=== PATIENT | male | born 1970 | race African-American/Black ===

== ENCOUNTER 2017-07-25 12:06 | Inpatient (IN) | payer OTHER ==
[2017-07-25 13:48] VITALS: BMI 19.1
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
[2017-07-25] MEDS ORDERED: MAGNESIUM CITRATE 300 ML BOTTLE PO PRN (17:01)
[2017-07-25] MEDS ORDERED: P-EPHED 60MG/TRIPROLIDI 2.5MG TABLET PO PRN (17:01)
[2017-07-25] MEDS ORDERED: MAGNESIUM HYDROX 2400MG/30ML ORAL SUSPENSION 30 ML CUP PO PRN (17:01)
[2017-07-25] MEDS ORDERED: hydrOXYzine PAMOATE 50 MG CAPSULE (FP) PO PRN (17:01)
[2017-07-25] MEDS ORDERED: IBUPROFEN 400 MG TABLET (FP) PO PRN (17:01)
[2017-07-25] MEDS ORDERED: LOPERAMIDE HCL 2 MG CAPSULE PO PRN (17:01)
[2017-07-25] MEDS ORDERED: NICOTINE POLACRILEX 2 MG GUM BC PRN (17:01)
[2017-07-25] MEDS ORDERED: guaiFENesin/D-METHORPHAN HB 10 ML UNIT-DOSE CUPS PO PRN (17:01)
[2017-07-25] MEDS ORDERED: MAG HYDROX/AL HYDROX/SIMETH 30 ML UNIT-DOSE CUP PO PRN (17:01)
[2017-07-25] MEDS ORDERED: MENTHOL/PHENOL 1 EACH UD MM PRN (17:01)
[2017-07-25] MEDS ORDERED: chlordiazePOXIDE HCL 25 MG CAPSULE PO PRN (17:01)
[2017-07-25] MEDS ORDERED: ACETAMINOPHEN 325 MG TABLET (FP) PO PRN (17:01)
[2017-07-25] MEDS: LOSARTAN POTASSIUM 50 MG TABLET (FP) PO SCH (20:50)
[2017-07-25] MEDS: chlordiazePOXIDE HCL 25 MG CAPSULE PO SCH (22:54)
[2017-07-25] MEDS: THIAMINE HCL 100 MG TABLET (FP) PO SCH (22:54)
[2017-07-26 00:51] LABS: URINE APPEARANCE CLEAR; URINE BILIRUBIN NEGATIVE (NEGATIVE); URINE BLOOD NEGATIVE (NEGATIVE); URINE COLOR YELLOW; URINE GLUCOSE (UA) NEGATIVE (NEGATIVE); URINE KETONE NEGATIVE (NEGATIVE); URINE NITRITE NEGATIVE (NEGATIVE); URINE PROTEIN NEGATIVE (NEGATIVE)
[2017-07-26] MEDS: chlordiazePOXIDE HCL 25 MG CAPSULE PO SCH ×4 (05:00→22:10)
[2017-07-26 10:00] LABS: MCH 31.3 pg (25.7-33.7); MCHC 33.6 g/dl (32.0-35.9); MEAN CELL VOLUME 93.2 fl (80-96); MEAN PLT VOLUME 11.8 fl (7.5-11.1); PLATELET COUNT 107 K/MM3 (134-434); RDW 13.8 % (11.9-15.9); WHITE BLOOD COUNT 4.5 K/mm3 (4.0-10.0)
[2017-07-26 10:04] LABS: URINE LEUK ESTERASE Negative (NEGATIVE)
[2017-07-26 10:05] LABS: ALK PHOS 122 U/L (45-117); ANION GAP 5 (8-16); CALCIUM 7.7 mg/dL (8.5-10.1); CO2 31 mmol/L (21-32); CREATININE 0.8 mg/dL (0.7-1.3); GLUCOSE,RANDOM 87 mg/dL (74-106); SGOT/AST 33 U/L (15-37); SGPT/ALT 26 U/L (12-78); TOT PROT 5.5 g/dl (6.4-8.2)
--- NOTE | 2017-07-26 10:12 | EKG ---
Test Reason : Blood Pressure : / mmHG Vent. Rate : 060 BPM Atrial Rate : 060 BPM P-R Int : 156 ms QRS Dur : 088 ms QT Int : 456 ms P-R-T Axes : 034 020 038 degrees QTc Int : 456 ms NORMAL SINUS RHYTHM T WAVE ABNORMALITY, CONSIDER ANTERIOR ISCHEMIA ABNORMAL ECG WHEN COMPARED WITH ECG OF 15-MAY-2016 14:57, NO SIGNIFICANT CHANGE WAS FOUND Confirmed by FERNANDA COCHRAN MD ([id number]) on 07/26/2017 10:12:01 AM Referred By: Confirmed By:FERNANDA COCHRAN MD
[2017-07-26] MEDS: LOSARTAN POTASSIUM 50 MG TABLET (FP) PO SCH ×2 (10:14→22:10)
[2017-07-26] MEDS: PRENATAL VITAMINS W/ FOLIC ACID TABLET (FP) PO SCH (10:14)
[2017-07-26] MEDS: NICOTINE 14 MG/24 HOURS TOPICAL PATCH TD SCH (10:15)
--- NOTE | 2017-07-26 12:24 | PN ---
[facility] CIWA - CIWA Score Nausea/Vomitin-No Nausea/No Vomiting Muscle Tremors: 3 Anxiety: 4-Mod. Anxious/Guarded Agitation: 1-Slight > Activity Paroxysmal Sweats: 3 Orientation: 0-Oriented Tacttile Disturbances: 2-Mild Itch/Numbness/Burn Auditory Disturbances: 0-None Visual Disturbances: 2-Mild Sensitivity Headache: 3-Moderate CIWA-Ar Total Score: 18 S Progress Note (SOAP) Subjective: Sweating, Body aches, Interrupted sleep, H/A, Tremors. Objective: PT. A & O X 3, OBSERVED AMBULATING ON UNIT. NO ACUTE DISTRESS. PATIENT DENIES CHEST PAIN. 07/26/17 12:25 Vital Signs Temperature 98.6 F 07/26/17 10:00 Pulse Rate 84 07/26/17 10:00 Respiratory Rate 18 07/26/17 10:00 Blood Pressure 175/103 07/26/17 10:00 O2 Sat by Pulse Oximetry (%) Laboratory Tests 07/25/17 07/26/17 07/26/17 21:22 07:00 07:00 WBC 4.5 D RBC 3.49 L Hgb 10.9 L Hct 32.6 L MCV 93.2 MCH 31.3 MCHC 33.6 RDW 13.8 Plt Count 107 L MPV 11.8 H Sodium 142 Potassium 3.7 Chloride 106 Carbon Dioxide 31 Anion Gap 5 L BUN 13 Creatinine 0.8 D Creat Clearance w eGFR > 60 Random Glucose 87 Calcium 7.7 L Total Bilirubin 1.0 D AST 33 D ALT 26 D Alkaline Phosphatase 122 H D Total Protein 5.5 L Albumin 3.0 L Urine Color Yellow Urine Appearance Clear Urine pH 6.0 Ur Specific [place] 1.025 Urine Protein Negative Urine Glucose (UA) Negative Urine Ketones Negative Urine Blood Negative Urine Nitrite Negative Urine Bilirubin Negative Urine Urobilinogen 2.0 Ur Leukocyte Esterase Negative RPR Titer 07/26/17 07:00 WBC RBC Hgb Hct MCV MCH MCHC RDW Plt Count MPV Sodium Potassium Chloride Carbon Dioxide Anion Gap BUN Creatinine Creat Clearance w eGFR Random Glucose Calcium Total Bilirubin AST ALT Alkaline Phosphatase Total Protein Albumin Urine Color Urine Appearance Urine pH Ur Specific [place] Urine Protein Urine Glucose (UA) Urine Ketones Urine Blood Urine Nitrite Urine Bilirubin Urine Urobilinogen Ur Leukocyte Esterase RPR Titer Nonreactive LABS NOTED. Assessment: 07/26/17 12:26 WITHDRAWAL SYMPTOMS. Plan: CONTINUE DETOX.
--- NOTE | 2017-07-26 16:17 | PN ---
S Progress Note Note: Daily dose of Cozaar increased to 50 mg PO BID for elevated BP. Flex Aguirre, [employer]
[2017-07-26] MEDS: THIAMINE HCL 100 MG TABLET (FP) PO SCH (22:10)
[2017-07-27] MEDS: chlordiazePOXIDE HCL 25 MG CAPSULE PO SCH ×3 (05:04→17:15)
[2017-07-27] MEDS: PRENATAL VITAMINS W/ FOLIC ACID TABLET (FP) PO SCH (10:09)
[2017-07-27] MEDS: LOSARTAN POTASSIUM 50 MG TABLET (FP) PO SCH ×2 (10:09→22:08)
[2017-07-27] MEDS: NICOTINE 14 MG/24 HOURS TOPICAL PATCH TD SCH (10:10)
--- NOTE | 2017-07-27 14:14 | PN ---
[facility] CIWA - CIWA Score Nausea/Vomitin-No Nausea/No Vomiting Muscle Tremors: 3 Anxiety: 4-Mod. Anxious/Guarded Agitation: 3 Paroxysmal Sweats: 3 Orientation: 2-Disoriented Date<2 days Tacttile Disturbances: 2-Mild Itch/Numbness/Burn Auditory Disturbances: 0-None Visual Disturbances: 2-Mild Sensitivity Headache: 0-None Present CIWA-Ar Total Score: 19 S Progress Note (SOAP) Subjective: Tremors, Sweating, Chills, Body Aches. Objective: PT. A & O X 2 (DISORIENTED ABOUT DAY / DATE). PT. OBSERVED AMBULATING ON UNIT. NO ACUTE DISTRESS. 07/27/17 14:12 Vital Signs Temperature 98.3 F 07/27/17 13:26 Pulse Rate 88 07/27/17 13:26 Respiratory Rate 18 07/27/17 13:26 Blood Pressure 147/91 07/27/17 13:26 O2 Sat by Pulse Oximetry (%) Laboratory Tests 07/25/17 07/26/17 07/26/17 21:22 07:00 07:00 WBC 4.5 D RBC 3.49 L Hgb 10.9 L Hct 32.6 L MCV 93.2 MCH 31.3 MCHC 33.6 RDW 13.8 Plt Count 107 L MPV 11.8 H Sodium 142 Potassium 3.7 Chloride 106 Carbon Dioxide 31 Anion Gap 5 L BUN 13 Creatinine 0.8 D Creat Clearance w eGFR > 60 Random Glucose 87 Calcium 7.7 L Total Bilirubin 1.0 D AST 33 D ALT 26 D Alkaline Phosphatase 122 H D Total Protein 5.5 L Albumin 3.0 L Urine Color Yellow Urine Appearance Clear Urine pH 6.0 Ur Specific [place] 1.025 Urine Protein Negative Urine Glucose (UA) Negative Urine Ketones Negative Urine Blood Negative Urine Nitrite Negative Urine Bilirubin Negative Urine Urobilinogen 2.0 Ur Leukocyte Esterase Negative RPR Titer 07/26/17 07:00 WBC RBC Hgb Hct MCV MCH MCHC RDW Plt Count MPV Sodium Potassium Chloride Carbon Dioxide Anion Gap BUN Creatinine Creat Clearance w eGFR Random Glucose Calcium Total Bilirubin AST ALT Alkaline Phosphatase Total Protein Albumin Urine Color Urine Appearance Urine pH Ur Specific [place] Urine Protein Urine Glucose (UA) Urine Ketones Urine Blood Urine Nitrite Urine Bilirubin Urine Urobilinogen Ur Leukocyte Esterase RPR Titer Nonreactive LABS NOTED. Assessment: 07/27/17 14:13 WITHDRAWAL SYMPTOMS. ANEMIA. THROMBOCYTOPENIA. 07/27/17 14:13 Plan: CONTINUE DETOX.
[2017-07-27] MEDS: THIAMINE HCL 100 MG TABLET (FP) PO SCH (22:09)
[2017-07-27] MEDS: chlordiazePOXIDE 5 MG CAPSULE PO SCH (22:09)
[2017-07-27] MEDS: diphenhydrAMINE HCL 50 MG CAPSULE PO PRN (23:52)
[2017-07-28] MEDS: chlordiazePOXIDE 5 MG CAPSULE PO SCH ×3 (05:14→17:01)
[2017-07-28] MEDS: PRENATAL VITAMINS W/ FOLIC ACID TABLET (FP) PO SCH (10:06)
[2017-07-28] MEDS: LOSARTAN POTASSIUM 50 MG TABLET (FP) PO SCH ×2 (10:07→22:03)
[2017-07-28] MEDS: NICOTINE 14 MG/24 HOURS TOPICAL PATCH TD SCH (10:07)
--- NOTE | 2017-07-28 13:59 | PN ---
[facility] Progress Note (SOAP) Subjective: Anxious, sweating, body aches, interrupted sleep, constipation x 2 days ( instructed to notify nurse so that he can receive medication) Objective: 07/28/17 13:58 Last Vital Signs Temp Pulse Resp BP Pulse Ox 98.4 F 75 18 142/90 07/28/17 12:42 07/28/17 12:42 07/28/17 12:42 07/28/17 12:42 Laboratory Tests 07/25/17 07/26/17 07/26/17 21:22 07:00 07:00 WBC 4.5 D RBC 3.49 L Hgb 10.9 L Hct 32.6 L MCV 93.2 MCH 31.3 MCHC 33.6 RDW 13.8 Plt Count 107 L MPV 11.8 H Sodium 142 Potassium 3.7 Chloride 106 Carbon Dioxide 31 Anion Gap 5 L BUN 13 Creatinine 0.8 D Creat Clearance w eGFR > 60 Random Glucose 87 Calcium 7.7 L Total Bilirubin 1.0 D AST 33 D ALT 26 D Alkaline Phosphatase 122 H D Total Protein 5.5 L Albumin 3.0 L Urine Color Yellow Urine Appearance Clear Urine pH 6.0 Ur Specific [place] 1.025 Urine Protein Negative Urine Glucose (UA) Negative Urine Ketones Negative Urine Blood Negative Urine Nitrite Negative Urine Bilirubin Negative Urine Urobilinogen 2.0 Ur Leukocyte Esterase Negative RPR Titer 07/26/17 07:00 WBC RBC Hgb Hct MCV MCH MCHC RDW Plt Count MPV Sodium Potassium Chloride Carbon Dioxide Anion Gap BUN Creatinine Creat Clearance w eGFR Random Glucose Calcium Total Bilirubin AST ALT Alkaline Phosphatase Total Protein Albumin Urine Color Urine Appearance Urine pH Ur Specific [place] Urine Protein Urine Glucose (UA) Urine Ketones Urine Blood Urine Nitrite Urine Bilirubin Urine Urobilinogen Ur Leukocyte Esterase RPR Titer Nonreactive Labs noted Assessment: 07/28/17 13:59 Withdrawal symptoms Plan: Continue detox Encouraged to drink lots of water
[2017-07-28] MEDS: chlordiazePOXIDE HCL 10 MG CAPSULE PO SCH (22:03)
[2017-07-28] MEDS: THIAMINE HCL 100 MG TABLET (FP) PO SCH (22:03)
[2017-07-28] MEDS: diphenhydrAMINE HCL 50 MG CAPSULE PO PRN (22:04)
[2017-07-29] MEDS: chlordiazePOXIDE HCL 10 MG CAPSULE PO SCH (06:09)
[2017-07-29 09:13] VITALS: BP 163/95; PULSE 72; TEMP 96.8
--- NOTE | 2017-07-29 10:58 | DS ---
[facility] Detox Discharge Summary Admission Date: 07/25/17 Discharge Date: 07/29/17 - History Present History: Alcohol Dependence, Cannabis Dependence Additional Comments: PATIENT GOING HOME AT THIS TIME. PATIENT ADVISED TO CONSIDER LOCAL 12-STEP OUTPATIENT 12-STEP / NA / AA SUPPORT GROUPS FOR AFTERCARE. PATIENT ALSO ADVISED TO FOLLOW-UP WITH LONG WINDER TENDER AT [facility] ([place], [place] FOR GENERAL MEDICAL ASSESSMENT AND FOR HISTORY OF HYPERTENSION. PATIENT WAS DISCHARGED FROM DETOX UNIT IN STABLE MEDICAL CONDITION. Pertinent Past History: HTN, Nicotine Dependence, PTSD, History of Pancreatitis, GERD. - Physical Exam Results Vital Signs: Vital Signs Temperature 96.8 F L 07/29/17 09:13 Pulse Rate 72 07/29/17 09:13 Respiratory Rate 18 07/29/17 09:13 Blood Pressure 163/95 07/29/17 09:13 O2 Sat by Pulse Oximetry (%) Pertinent Admission Physical Exam Findings: WITHDRAWAL SYMPTOMS. Laboratory Tests 07/25/17 07/26/17 07/26/17 21:22 07:00 07:00 WBC 4.5 D RBC 3.49 L Hgb 10.9 L Hct 32.6 L MCV 93.2 MCH 31.3 MCHC 33.6 RDW 13.8 Plt Count 107 L MPV 11.8 H Sodium 142 Potassium 3.7 Chloride 106 Carbon Dioxide 31 Anion Gap 5 L BUN 13 Creatinine 0.8 D Creat Clearance w eGFR > 60 Random Glucose 87 Calcium 7.7 L Total Bilirubin 1.0 D AST 33 D ALT 26 D Alkaline Phosphatase 122 H D Total Protein 5.5 L Albumin 3.0 L Urine Color Yellow Urine Appearance Clear Urine pH 6.0 Ur Specific [place] 1.025 Urine Protein Negative Urine Glucose (UA) Negative Urine Ketones Negative Urine Blood Negative Urine Nitrite Negative Urine Bilirubin Negative Urine Urobilinogen 2.0 Ur Leukocyte Esterase Negative RPR Titer 07/26/17 07:00 WBC RBC Hgb Hct MCV MCH MCHC RDW Plt Count MPV Sodium Potassium Chloride Carbon Dioxide Anion Gap BUN Creatinine Creat Clearance w eGFR Random Glucose Calcium Total Bilirubin AST ALT Alkaline Phosphatase Total Protein Albumin Urine Color Urine Appearance Urine pH Ur Specific [place] Urine Protein Urine Glucose (UA) Urine Ketones Urine Blood Urine Nitrite Urine Bilirubin Urine Urobilinogen Ur Leukocyte Esterase RPR Titer Nonreactive LABS NOTED. - Treatment Hospital Course: Detox Protocol Followed, Detoxed Safely, Responded well, Discharged Condition Good Patient has Accepted a Rehab Referral to: NO. PT. GOING HOME, ADVISED TO CONSIDER LOCAL 12-STEP/AA/NA SUPPORT GROUPS. - Medication Discharge Medications: Ambulatory Orders Losartan Potassium [Cozaar -] 50 mg PO DAILY #30 tablet 07/29/17 - Diagnosis (1) Alcohol dependence with uncomplicated withdrawal Status: Acute (2) Cannabis dependence Status: Acute (3) Nicotine dependence Status: Chronic Qualifiers: Nicotine product type: cigarettes Substance use status: uncomplicated Qualified Code(s): F17.210 - Nicotine dependence, cigarettes, uncomplicated ; F17.210 - Nicotine dependence, cigarettes, uncomplicated (4) Alcoholic pancreatitis Status: Chronic Qualifiers: Chronicity: chronic Qualified Code(s): K86.0 - Alcohol-induced chronic pancreatitis; K86.0 - Alcohol-induced chronic pancreatitis; K86.0 - Alcohol-induced chronic pancreatitis; K86.0 - Alcohol-induced chronic pancreatitis (5) Essential hypertension Status: Chronic (6) GERD (gastroesophageal reflux disease) Status: Chronic Qualifiers: Esophagitis presence: without esophagitis Qualified Code(s): K21.9 - Gastro-esophageal reflux disease without esophagitis; K21.9 - Gastro-esophageal reflux disease without esophagitis; K21.9 - Gastro-esophageal reflux disease without esophagitis (7) PTSD (post-traumatic stress disorder) Status: Chronic - AMA Did Patient Leave Against Medical Advice: No
== END 2017-07-29 10:29 | disposition home or self-care (01) | DRG 897 ==
LOC: YASAS 12:06 → Y3N 18:24
PROVIDERS: ADMIT Internal Medicine; ATTEND Internal Medicine
PROC: HZ2ZZZZ Detoxification Services for Substance Abuse Treatment (ICD-10-PCS; principal; 2017-07-25)
DX: F10.230 Alcohol dependence with withdrawal, uncomplicated (principal); K86.0 Alcohol-induced chronic pancreatitis; F12.20 Cannabis dependence, uncomplicated; F17.210 Nicotine dependence, cigarettes, uncomplicated; F43.10 Post-traumatic stress disorder, unspecified; I10 Essential (primary) hypertension; K21.9 Gastro-esophageal reflux disease without esophagitis
CPT/HCPCS: 36415; 80053; 81003; 85027; 86593; 93005; 93010

== ENCOUNTER 2019-10-21 16:35 | Inpatient (IN) | payer OTHER ==
[2019-10-21 17:12] VITALS: BMI 18.8
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
[2019-10-21] MEDS ORDERED: chlordiazePOXIDE HCL 25 MG CAPSULE PO PRN (18:12)
[2019-10-21] MEDS ORDERED: MENTHOL/PHENOL 1 EACH UD MM PRN (18:12)
[2019-10-21] MEDS ORDERED: NICOTINE POLACRILEX 2 MG GUM BUC PRN (18:12)
[2019-10-21] MEDS ORDERED: IBUPROFEN 400 MG TABLET (FP) PO PRN (18:12)
[2019-10-21] MEDS ORDERED: ACETAMINOPHEN 325 MG TABLET (FP) PO PRN ×2 (18:12)
[2019-10-21] MEDS ORDERED: MAGNESIUM CITRATE 300 ML BOTTLE PO PRN (18:12)
[2019-10-21] MEDS ORDERED: hydrOXYzine PAMOATE 25 MG CAPSULE (FP) PO PRN (18:12)
[2019-10-21] MEDS ORDERED: METHOCARBAMOL 500 MG TABLET PO PRN (18:12)
[2019-10-21] MEDS ORDERED: BISMUTH SUBSALICYLATE 524 MG/30 ML UD PO PRN (18:12)
[2019-10-21] MEDS ORDERED: MAGNESIUM HYDROX 2400MG/30ML ORAL SUSPENSION 30 ML CUP PO PRN (18:12)
[2019-10-21] MEDS ORDERED: MAG HYDROX/AL HYDROX/SIMETH 30 ML UNIT-DOSE CUP PO PRN (18:12)
[2019-10-21] MEDS ORDERED: cloNIDine HCL 0.1 MG TABLET PO ONE (20:02)
--- NOTE | 2019-10-21 20:04 | PN ---
S Progress Note Note: Patient's blood pressure is B/P 174/97. Patient is asymptomatic Vital Signs Temperature 97.5 F L 10/21/19 20:04 Pulse Rate 60 10/21/19 20:04 Respiratory Rate 18 10/21/19 20:04 Blood Pressure 174/97 H 10/21/19 20:04 O2 Sat by Pulse Oximetry (%) Action: Clonidine 0.1mg tablet oral ordered
[2019-10-21] MEDS: chlordiazePOXIDE HCL 25 MG CAPSULE PO SCH (22:08)
[2019-10-21] MEDS: THIAMINE HCL 100 MG TABLET (FP) PO SCH (22:08)
[2019-10-22] MEDS: chlordiazePOXIDE HCL 25 MG CAPSULE PO SCH ×4 (06:07→22:07)
[2019-10-22] MEDS: NICOTINE 21 MG/24 HOURS TOPICAL PATCH TD SCH (10:17)
[2019-10-22] MEDS: PRENATAL VITAMINS W/ FOLIC ACID TABLET (FP) PO SCH (10:17)
[2019-10-22] MEDS: LOSARTAN POTASSIUM 50 MG TABLET (FP) PO SCH (10:17)
[2019-10-22 10:25] LABS: HEMATOCRIT 33.1 % (35.4-49); HEMOGLOBIN 10.8 GM/dL (11.7-16.9); MCH 30.6 pg (25.7-33.7); MCHC 32.6 g/dl (32.0-35.9); MEAN CELL VOLUME 93.6 fl (80-96); MEAN PLT VOLUME 11.8 fl (7.5-11.1); PLATELET COUNT 89 K/MM3 (134-434); RBC 3.53 M/mm3 (4.00-5.60); RDW 12.7 % (11.9-15.9); WHITE BLOOD COUNT 2.7 K/mm3 (4.0-10.0)
[2019-10-22 10:36] LABS: ALBUMIN 3.5 g/dl (3.4-5.0); BILIRUBIN,TOTAL 0.6 mg/dL (0.2-1); BLOOD UREA NITROGEN 19.4 mg/dL (7-18); CALCIUM 8.8 mg/dL (8.5-10.1); CREATININE 0.8 mg/dL (0.55-1.3); POTASSIUM 4.6 mmol/L (3.5-5.1); TOT PROT 6.3 g/dl (6.4-8.2)
--- NOTE | 2019-10-22 11:51 | PN ---
S CIWA - CIWA Score Nausea/Vomitin-Mild Nausea/No Vomiting Muscle Tremors: 3 Anxiety: 3 Agitation: 3 Paroxysmal Sweats: 3 Orientation: 0-Oriented Tacttile Disturbances: 0-None Auditory Disturbances: 0-None Visual Disturbances: 0-None Headache: 0-None Present CIWA-Ar Total Score: 13 S Progress Note (SOAP) Subjective: shakes sweats irritable agitation body aches headache Objective: 10/22/19 11:49 Vital Signs Temperature 97.7 F 10/22/19 11:15 Pulse Rate 60 10/22/19 11:15 Respiratory Rate 17 10/22/19 11:15 Blood Pressure 141/78 10/22/19 11:15 O2 Sat by Pulse Oximetry (%) Laboratory Tests 10/22/19 10/22/19 08:00 08:00 WBC 2.7 L RBC 3.53 L Hgb 10.8 L Hct 33.1 L MCV 93.6 MCH 30.6 MCHC 32.6 RDW 12.7 Plt Count 89 L MPV 11.8 H Sodium 140 Potassium 4.6 Chloride 108 H Carbon Dioxide 30 Anion Gap 3 L BUN 19.4 H Creatinine 0.8 Est GFR (CKD-EPI)AfAm 120.72 Est GFR (CKD-EPI)NonAf 104.16 Random Glucose 94 Calcium 8.8 Total Bilirubin 0.6 AST 28 ALT 34 Alkaline Phosphatase 138 H Total Protein 6.3 L Albumin 3.5 labs noted aaox3 mild how H:H continue with vitamins elevated BUN; encourage fluids Assessment: 10/22/19 11:50 withdrawals Plan: continue detox increase fluids
--- NOTE | 2019-10-22 15:15 | EKG ---
Test Reason : Blood Pressure : / mmHG Vent. Rate : 053 BPM Atrial Rate : 053 BPM P-R Int : 184 ms QRS Dur : 090 ms QT Int : 450 ms P-R-T Axes : 050 013 033 degrees QTc Int : 422 ms SINUS BRADYCARDIA POSSIBLE LEFT ATRIAL ENLARGEMENT LEFT VENTRICULAR HYPERTROPHY ST ELEVATION, CONSIDER EARLY REPOLARIZATION ABNORMAL ECG WHEN COMPARED WITH ECG OF 25-JUL-2017 20:54, ST ELEVATION NOW PRESENT IN ANTERIOR LEADS T WAVE INVERSION NO LONGER EVIDENT IN ANTERIOR LEADS Confirmed by KAY CAMP MD ([id number]) on 10/22/2019 3:15:33 PM Referred By: Confirmed By:KAY CAMP MD
[2019-10-22] MEDS: MELATONIN 5 MG TABLETS PO PRN (22:07)
[2019-10-22] MEDS: THIAMINE HCL 100 MG TABLET (FP) PO SCH (22:07)
[2019-10-23] MEDS: chlordiazePOXIDE HCL 25 MG CAPSULE PO SCH ×4 (06:27→22:20)
[2019-10-23] MEDS: NICOTINE 21 MG/24 HOURS TOPICAL PATCH TD SCH (10:41)
[2019-10-23] MEDS: PRENATAL VITAMINS W/ FOLIC ACID TABLET (FP) PO SCH (10:42)
[2019-10-23] MEDS: LOSARTAN POTASSIUM 50 MG TABLET (FP) PO SCH (10:42)
[2019-10-23] MEDS: MELATONIN 5 MG TABLETS PO PRN (21:54)
[2019-10-23] MEDS: THIAMINE HCL 100 MG TABLET (FP) PO SCH (21:54)
[2019-10-24] MEDS ORDERED: chlordiazePOXIDE HCL 10 MG CAPSULE PO PRN
[2019-10-24] MEDS: chlordiazePOXIDE HCL 10 MG CAPSULE PO SCH ×2 (05:50→10:42)
[2019-10-24] MEDS: NICOTINE 21 MG/24 HOURS TOPICAL PATCH TD SCH (10:42)
[2019-10-24] MEDS: LOSARTAN POTASSIUM 50 MG TABLET (FP) PO SCH (10:42)
[2019-10-24] MEDS: PRENATAL VITAMINS W/ FOLIC ACID TABLET (FP) PO SCH (10:42)
[2019-10-24 11:24] VITALS: BP 142/80; PULSE 66; TEMP 97.7
--- NOTE | 2019-10-24 15:30 | DS ---
[facility] Detox Discharge Summary Admission Date: 10/21/19 Discharge Date: 10/24/19 - History Present History: Alcohol Dependence, Cannabis Dependence Additional Comments: DESPITE EFFORTS BY MONITORING ANALYST AND BY NURSING STAFF TO ADDRESS PATIENT'S MEDICAL NEEDS / CONCERNS, PATIENT DOES NOT WISH TO REMAIN TO COMPLETE DETOX REGIMEN. RISKS OF LEAVING DETOX UNIT AGAINST MEDICAL ADVICE AND PRIOR TO COMPLETION OF DETOX REGIMEN EXPLAINED TO PATIENT. PATIENT ADVISED TO GO IMMEDIATELY TO NEAREST ER SHOULD ANY INTOLERABLE WITHDRAWAL / DETOX SYMPTOMS DEVELOP AT ANY TIME. PATIENT VERBALIZED UNDERSTANDING OF ALL INFORMATION / RECOMMENDATIONS PRESENTED TO HIM PRIOR TO DEPARTURE FROM DETOX UNIT. PATIENT LEFT DETOX UNIT IN STABLE MEDICAL CONDITION. Pertinent Past History: HTN, History of Pancreatitis, History of Seizures, GERD, Nicotine Dependence, History of PTSD. - Physical Exam Results Vital Signs: Vital Signs Temperature 97.7 F 10/24/19 10:00 Pulse Rate 66 10/24/19 10:00 Respiratory Rate 18 10/24/19 10:00 Blood Pressure 142/80 10/24/19 10:00 O2 Sat by Pulse Oximetry (%) Pertinent Admission Physical Exam Findings: WITHDRAWAL SYMPTOMS. Laboratory Tests 10/22/19 10/22/19 10/22/19 08:00 08:00 08:00 WBC 2.7 L RBC 3.53 L Hgb 10.8 L Hct 33.1 L MCV 93.6 MCH 30.6 MCHC 32.6 RDW 12.7 Plt Count 89 L MPV 11.8 H Sodium 140 Potassium 4.6 Chloride 108 H Carbon Dioxide 30 Anion Gap 3 L BUN 19.4 H Creatinine 0.8 Est GFR (CKD-EPI)AfAm 120.72 Est GFR (CKD-EPI)NonAf 104.16 Random Glucose 94 Calcium 8.8 Total Bilirubin 0.6 AST 28 ALT 34 Alkaline Phosphatase 138 H Total Protein 6.3 L Albumin 3.5 RPR Titer Nonreactive LABS NOTED. - Medication Discharge Medications: Ambulatory Orders Losartan Potassium [Cozaar -] 50 mg PO DAILY #30 tablet 07/29/17 - Diagnosis (1) Alcohol dependence with uncomplicated withdrawal Current Visit: Yes Status: Acute (2) Cannabis dependence Current Visit: Yes Status: Acute - AMA Did Patient Leave Against Medical Advice: Yes (PATIENT DID NOT WISH TO REMAIN TO COMPLETE DETOX REGIMEN.)
[2019-10-25] MEDS ORDERED: chlordiazePOXIDE HCL 10 MG CAPSULE PO SCH (05:00)
[2019-10-26] MEDS ORDERED: chlordiazePOXIDE HCL 10 MG CAPSULE PO ONE (05:00)
== END 2019-10-24 15:30 | disposition left against medical advice (07) | DRG 894 ==
LOC: YASAS 16:35 → Y6N 18:26
PROVIDERS: ADMIT Allergy & Immunology; ATTEND Allergy & Immunology
PROC: HZ2ZZZZ Detoxification Services for Substance Abuse Treatment (ICD-10-PCS; principal; 2019-10-21)
DX: F10.230 Alcohol dependence with withdrawal, uncomplicated (principal); F12.20 Cannabis dependence, uncomplicated; F17.210 Nicotine dependence, cigarettes, uncomplicated; I10 Essential (primary) hypertension; R79.89 Other specified abnormal findings of blood chemistry; K21.9 Gastro-esophageal reflux disease without esophagitis; R25.1 Tremor, unspecified; Z88.0 Allergy status to penicillin; Z86.69 Personal history of other diseases of the nervous system and sense organs
CPT/HCPCS: 36415; 80053; 85027; 86593; 93005; 93010; J0735